=== PATIENT | male | born 1995 | race African-American/Black ===

== ENCOUNTER 2018-08-25 12:11 | Emergency (ER) | payer MEDICAID ==
[~2018-08-25] VITALS: Ht 175.3 cm; Wt 73.0 kg
[2018-08-25 12:18] VITALS: BP 127/82
[2018-08-25 15:00] LABS: CLARITY URINE CLEAR (CLEAR); COLOR URINE YELLOW (YELLOW); KETONES URINE NEGATIVE (NEGATIVE); LEUKOCYTE ESTERASE URINE NEGATIVE (NEGATIVE); NITRITE URINE NEGATIVE (NEGATIVE); OCCULT BLOOD URINE NEGATIVE (NEGATIVE); PH URINE 5.5 (4.5-8.0); PROTEIN URINE NEGATIVE (NEGATIVE); SPECIFIC GRAVITY URINE 1.025 (1.005-1.030); UROBILINOGEN URINE 0.2 E.U./dL (0.2-1.0)
[2018-08-25] MEDS ORDERED: LIDOCAINE HCL/PF 1% 10 MG/ML 5ML VIAL IJ ONE (15:00)
[2018-08-25] MEDS ORDERED: AZITHROMYCIN 500 MG TABLET PO ONE (15:00)
[2018-08-25] MEDS ORDERED: CEFTRIAXONE SODIUM 250 MG/VIAL IM ONE (15:00)
== END 2018-08-25 16:46 | disposition home or self-care (01) ==
LOC: ER 12:11
DX: R30.9 Painful micturition, unspecified (principal); R36.9 Urethral discharge, unspecified
CPT/HCPCS: 81003; 96372; 99283; J0696; J3490